=== PATIENT | male | born 1970 | race Caucasian/White ===

== ENCOUNTER 2025-08-07 00:36 | Inpatient (IN) | payer BC, SELFPAY ==
[2025-08-06] VITALS (21 sets, daily range): BP systolic 87–186; BP diastolic 51–122; BMI 25.7
[2025-08-06 21:39] LABS: Hematocrit 46.2 % (39.0-52.0); Hemoglobin 15.9 g/dL (13.0-18.0); Mean Corp Hgb Conc. 34.4 g/dL (33.0-37.0); Mean Corpuscular Volume 93.1 fL (80.0-94.0); Nucleated Red Blood Cells % 0 % (-); Platelet Count 277 10^3/uL (130-400); Red Cell Dist. Width 13.4 % (11.5-14.5)
--- NOTE | 2025-08-06 21:41 | ED.GENMED ---
History of Present Illness
General
Chief Complaint: Chest Pain
Source: patient
Time Seen by Provider: 08/06/25 21:12
History of Present Illness
History of Present Illness:
54-year-old male presents to the emergency room complaining of chest pain. The pain has been present since about noon. Constant pain located in the center of his chest. Pain does not radiate or move from that area. He denies any associated
shortness of breath, diaphoresis or nausea. Nothing seems to make the chest discomfort better or worse. Patient does have a history of coronary artery disease and had a IL in 2019. Patient states he was compliant with medications for a while
after the cath but has not been taking any of his medications for some time. Patient does endorse smoking a pack and a half a day. He drinks about a sixpack of a day as well.
Past History
Past History
ED Past Medical History: HTN and Hypercholesterolemia
ED Past Surgical History: Appendectomy and Other (R scrotal surgery)
Social History
Tobacco: Smoker
Drug: None
Personal:
Living: with family
Employment: Employed
Family History
Family History: Other
Phy Exam
Physical Exam
Physical Exam:
General: Awake, Alert, Oriented X3. No acute distress.
Vitals: unremarkable
Head: Atraumatic
Eyes: Pupils equal, EOMI
Throat: Airway intact, no exudates
Neck: Trachea midline
Lungs: Clear and equal b/l
Heart: Regular rate, no murmurs
Abd: Soft, Nontender, No pulsatile mass
Neuro: Nonfocal
Skin: Warm, dry, no rash
Extremities: pulses equal b/l, no edema
Scores
Heart Score for Chest Pain Patients
STEMI patient?: No
History: Highly Suspicious
ECG: Nonspecific Repolarization
Age: >45 - <65 years
Risk Factors: >/= 3 Risk Factors or History of CAD
Troponin: >/= 3 x Normal Limit
Heart Score for Chest Pain Patients: 8
Heart Score Risk: 72.7 % MACE over next 6 weeks
Course
Orders/Labs/Results
Orders:
Orders
08/06/25 20:51
Electrocardiogram (*1) Urgent
Reason for Study: Chest Pain
EKG- Treatment ONCE
08/06/25 21:32
Alcohol Urgent
Complete Blood Count/With Diff Urgent
Comprehensive Metabolic Panel Urgent
Lipase Urgent
Comment: ADD ON
Troponin I Urgent
08/06/25 21:39
Aspirin Chewable [Low Strength Aspirin] 324 mg PO NOW STA
Famotidine [Pepcid] 20 mg IV NOW STA
CR Chest - 2 Views Urgent
Comment:
Reason For Exam: chest pain
08/06/25 21:40
Add On- LAB Urgent
Tests Added?: lipase, etoh level
08/06/25 22:16
PTT Urgent
08/06/25 22:20
Heparin 4,000 units IV NOW STA
Nitroglycerin 100 mg/250 ml [Nitroglycerin Premix] 100 mg in 250 ml IV NOW
Initial dose in mcg/min, then titrate:: 5
Titrate to keep:: SBP < 160 mmHg
Titrate by mcg/min:: 5 mcg/min, may increase by 10 mcg/min if dose > 20 mcg/min
Frequency of titrations (minutes):: every 3-5 minutes
Maximum dose in mcg/min:: 200
Begin to taper infusion when:: Remained at goal for 2hrs
Taper by mcg/min:: 5 mcg/min
Frequency of taper (minutes) if patient maintains goal:: 30
Taper to off?: Yes
If infusion off & no longer maintaining goal:: Contact Provider
Nitroglycerin Sublingual [Nitrostat (Sublingual)] 0.4 mg SL [id number] PRN
08/06/25 22:22
Nitroglycerin 100 mg/250 ml [Nitroglycerin Premix] 100 mg in 250 ml .ROUTE .STK-MED
Nitroglycerin Sublingual [Nitrostat (Sublingual)] 0.4 mg .ROUTE .STK-MED ONE
Nursing to Place Non Medication Order As Directed
Physician Order: PTT 6 hours after initial start of Heparin infusion
08/06/25 22:30
Heparin 33217 Units/250 ml 25,000 units in 250 ml IV PER PROTOCOL
Weight to be used for heparin protocol in kilograms (kg):: 72.3
Protocol:: Cardiac Tx/Acute Coronary
PTT Goal Range to be used:: PTT 73 to 111 seconds
Order type:: Initial
INITIAL Infusion Dose (UNITS/KG/hr) & then follow protocol:: 15 units/kg/hr
Infusion Dose in UNITS/hr & then follow protocol (UNITS/hr):: 1,100
INFUSION RATE in mL/hr & then follow protocol (mL/hr):: 11
PTT less than or equal to 64 seconds:: Increase rate by 200 units/hr (+ 2 mL/hr)
PTT 64.1 to 72.9 seconds:: Increase rate by 100 units/hr (+ 1 mL/hr)
PTT 73 to 111 seconds:: Target Range. No change in rate.
PTT 111.1 to 130.9 seconds:: Decrease rate by 100 units/hr (- 1 mL/hr)
PTT 131 to 199.9 seconds:: HOLD for 1 hr. Then decrease rate by 200 units/hr (- 2 mL/hr)
PTT greater than or equal to 200 seconds:: HOLD for 2 hrs & Notify Provider. Then decrease by 200 units/hr (-
2 mL/hr)
Lab follow-up:: Each change, PTT q6h until 2 consecutive are therapeutic. Then PTT
daily.
08/06/25 22:33
EKG [Electrocardiogram (*1)] Urgent
Reason for Study: Chest Pain
EKG- Treatment ONCE
Abnormal Lab Results
08/06/25
21:32
WBC 14.8 H 10^3/uL
(4.8-10.8)
MCH 32.1 H pg
(27.0-31.0)
Abs Immat Gran (auto) 0.1 H 10^3/uL
(0-0.05)
Absolute Neuts (auto) 10.2 H 10^3/uL
(1.4-6.5)
Absolute Monos (auto) 1.2 H 10^3/uL
(0.1-0.6)
Lymphocytes % 20.1 L %
(20.5-51.1)
Sodium 133 L mmol/L
(135-145)
Glucose 257 H mg/dl
(70-99)
AST 76 H U/L
(17-59)
Troponin I 9.360 H* ng/ml
08/06/25 21:32
08/06/25 21:32
Vital Signs
Initial and Last Documented VS:
Initial Vital Signs
Temp Pulse Resp BP Pulse Ox
98.0 F 112 20 186/122 98
08/06/25 20:57 08/06/25 20:57 08/06/25 20:57 08/06/25 20:57 08/06/25 20:57
Last Documented Vital Signs
Temp Pulse Resp BP Pulse Ox
98.0 F 63 19 106/67 97
08/06/25 20:57 08/06/25 22:45 08/06/25 22:45 08/06/25 22:45 08/06/25 22:45
MDM/Problems Addressed
Differential Diagnosis Includes:
NSTEMI, GERD, L pancreatitis
MDM/Problems Addressed:
Patient presents with chest pain which he describes as reminiscent of his previous heart attack. Initial EKG showed some T wave inversions in the inferior leads but no ST elevation. Troponin elevated at 9.36. Glucose elevated at 257. Not
surprising given the fact the patient is not taking any of his medications. His chest pain was ultimately relieved with 3 sublingual nitroglycerin as well as the initiation of a nitroglycerin drip. Given the presence of a NSTEMI he was also given
a heparin bolus and started on a heparin drip. Patient also received 324 mg of aspirin here. He will be admitted to the hospitalist service. I discussed the patient's presentation with Dr. Albert love who is on-call for his cardiology group. She
agrees with the plan but would like to be notified if the pain returns through the night.
Chronic conditions affecting care: DM, HTN and CAD
Acute Exacerbation and/or Progression of Chronic Illness: CAD
*Radiology
Radiology exam reviewed: preliminary read by ED provider (No acute abnormality my review of the patient's chest x-ray)
*Pulse Oximetry
SaO2: 97
Oxygen Mode of Delivery: Room air
Patient hypoxic: no
*EKG
Interpreted by ED Provider?: Yes
Heart Rate: 116
Rate: tachycardiac
Rhythm: sinus tachycardia
Interval: normal interval
QRS Pattern: left vent hypertrophy
Ischemia: T-wave inversion (Inferior leads)
*Mold Mover Interpretation
Rate: tachycardiac
Interpretation: abnormal
Heart Rate: 116
Rhythm: sinus and sinus tachycardia
*Critical Care Note
Total Time (30-74mins, 75-104mins- exclusive of procedures): 38 min
comment:
Critical care statement: A total of 38 minutes of critical care time was provided for this patient. This includes management of unstable vital signs, evaluation of the patient at bedside, reviewing the patient's pertinent medical records, discussion
with consultants, review of old EKGs and review of pertinent medical records. This time with separate from time utilized to perform the aforementioned documented procedures
Data Reviewed
Review of Other/Old Records Reveals: Operative Reports (Client Integration Manager report from August 2019) and Testing (Last echo from May 2020)
Patient Management
Social determinants of health affecting care: Substance abuse
Discussion with other providers: Hospitalist and Barley Steeper
ED Attending Note
-
Portions of this chart may have been created with voice recognition software.� Occasional wrong word or��sound alike� substitutions may have occurred due to the inherent limitations of voice recognition software.
Discharge Plan
Departure
Patient Disposition: Admit
Date of Disposition: 08/06/25
Time of Disposition: 23:07
Admit to: IVU
Presentation/result/management discussed w/ accepting MD/DO: Hospitalist
Condition: Serious
Discharge Problem:
Non-ST elevation IL (NSTEMI)
Prescriptions:
No Action
atorvastatin 80 MG tablet
80 mg PO QPM Qty: 90 10RF
spironolactone 12.5 MG tablet
12.5 mg PO DAILY Qty: 90 10RF
aspirin 81 MG tablet,chewable
81 mg PO DAILY 0RF
lisinopril 5 MG tablet
5 mg PO BID Qty: 180 10RF
metoprolol tartrate 25 MG tablet
25 mg PO BID Qty: 180 10RF
nitroglycerin 0.4 MG tablet, sublingual
0.4 mg sublingual [id number] PRN (Reason: chest pain) Qty: 25 10RF
Referrals:
UNKNOWN - PT DOES,NOT KNOW [Family Provider]
Interventions
Interventions:
*Risk Screen - Suicide Last Done: 08/06/25 21:34
*General Assessment Last Done: 08/06/25 20:57
*Neglect/Abuse Screening Last Done: 08/06/25 21:34
*ED- Fall Risk Assessment Last Done: 08/06/25 21:34
*ED COVID-19 Vaccine History Last Done: 08/06/25 21:34
*ED Influenza Vaccine History Last Done: 08/06/25 21:34
ED- Cardiac Assessment Last Done: 08/06/25 21:30
Discharge Date and Time
Print Language: TURKISH
[2025-08-06] MEDS: LOW STRENGTH ASPIRIN 324 MG PO (21:57)
[2025-08-06] MEDS: PEPCID 20 MG IV (21:59)
[2025-08-06 22:02] LABS: ALT (SGPT) 34 U/L (0-50); AST (SGOT) 76 U/L (17-59); Albumin 3.9 g/dl (3.5-5.0); Alkaline Phosphatase 64 U/L (38-126); Blood Urea Nitrogen 20 mg/dl (9-20); Calcium 9.2 mg/dl (8.4-10.2); Carbon Dioxide 27 mmol/L (22-30); Chloride 104 mmol/L (98-107); Estimated Creatinine Clearance 95 ml/min; Glucose 257 mg/dl (70-99); Lipase 78 U/L (23-300); Potassium 4.4 mmol/L (3.5-5.1); Sodium 133 mmol/L (135-145); Total Protein 6.8 g/dl (6.3-8.2); eGFR > 60.00
[2025-08-06 22:14] LABS: Troponin I 9.360 ng/ml
[2025-08-06] MEDS: NITROSTAT (SUBLINGUAL) 0.4 MG SL ×3 (22:27→22:37)
[2025-08-06] MEDS: NITROGLYCERIN PREMIX 250 IV (22:43)
[2025-08-06 22:48] LABS: APTT 26.7 Sec (23.4-35.0)
[2025-08-06] MEDS: HEPARIN 25000 UNITS/250 ML IV (23:06)
[2025-08-06] MEDS: HEPARIN 4000 UNITS IV (23:07)
[2025-08-06] MEDS: NSS 500 IV (23:34)
[2025-08-07] VITALS (40 sets, daily range): BP systolic 103–148; BP diastolic 51–99; BMI 25.5
--- NOTE | 2025-08-07 00:33 | HPS.HSE ---
Family Physician
-
Family Physician: NOT KNOW UNKNOWN - PT DOES
Chief Complaint
-
Chest pain
History of Present Illness
Patient is a 54y M with PMH significant for ASCVD and DM-II who presents to ED complaining of chest pain. Patient states that he developed dull, left-sided chest pain today around noon. His pain gradually increased throughout the day. He notes
associated SOB and mild diaphoresis. No N/V, lightheadedness or dizziness. Patient has prior h/o STEMI in 2019 and notes that his current symptoms were very similar.
When his pain persisted after dinner this evening he presented to the ED for further evaluation.
Patient was treated with SL and IV NTG. He states that his pain was 8/10 at its most severe today. It is currently 0.5 - 1 /10.
Patient states that he has taken no medications for the past 'couple of months'. He states that there was some issues with Rx errors / coverage / etc. He notes however that he also has not been taking his daily ASA 81mg.
Medical History
Past Medical History
Past Medical History: Reports Other
Additional Past Medical History:
ASCVD
Hypertension
DM-II
Ischemic Cardiomyopathy
Past Surgical History: Reports Other
Additional Past Surgical History:
PTCA with LAD Stent (08/17/2019)
Appendectomy
Social History
Tobacco: Smoker (Current every day smoker.)
Alcohol: Occasional
Drug: None
Family History
Family History: Other (Father: CAD Mother: HTN)
Allergies / Home Medications
Allergies reflects when Allergies were last updated in [facility].
Home Medications with original date entered in [facility]
Allergy/Medication List:
Allergies
Allergy/AdvReac Type Severity Reaction Status Date / Time
Penicillins Allergy Unknown Verified 08/06/25 20:57
Home Medications
No Meds [No Current Medications] 08/06/25
Review of Systems
-
History Source: Patient
A 12 point ROS was completed and negative except as noted: Yes
Constitutional: Denies Fever or Chills
EENT: Denies Sore Throat
Respiratory: Reports Trouble Breathing; Denies Cough
Cardiac: Reports Chest Pain and Diaphoresis; Denies Palpitations or Syncope
Abdomen/GI: Denies Abdominal Pain, Nausea, Vomiting or Diarrhea
: Denies Dysuria or Frequency
Musculoskeletal: Denies Joint Pain or Edema
Neurological: Denies Dizzy or Headache
Psych: Denies Depression or Anxiety
Physical Exam
Vital Signs
Vital Signs
Temp Pulse Resp BP Pulse Ox
98.0 F 60 23 117/65 96
08/06/25 20:57 08/07/25 00:05 08/07/25 00:05 08/07/25 00:05 08/07/25 00:05
Physical Exam
General: Other (54y M in no acute distress.)
HEENT: Moist mucous membranes and PERRLA
Respiratory: Clear; No Wheezes, Rales or Rhonchi
Cardiac: S1/S2 and Regular Rhythm; No Murmur
GI: Soft, Non Tender, Non Distended and Normal Bowel Sounds
Musculoskeletal: No Clubbing, No Cyanosis and No Edema
Neuro: AO x 3
Laboratory Results
-
08/06/25 21:32
08/06/25 21:32
Laboratory Results
APTT 26.7 Sec (23.4-35.0) 08/06/25 22:16
Total Bilirubin 0.5 mg/dl (0.2-1.3) 08/06/25 21:32
AST 76 U/L (17-59) H 08/06/25 21:32
ALT 34 U/L (0-50) 08/06/25 21:32
Alkaline Phosphatase 64 U/L (38-126) 08/06/25 21:32
Troponin I 9.360 ng/ml H* 08/06/25 21:32
Lipase 78 U/L (23-300) 08/06/25 21:32
Impression/Plan
-
A/P: Patient is a 54y M with PMH significant for ASCVD, HTN and DM-II who presents to ED complaining of chest pain.
NSTEMI
ASCVD
- Admit to IVU for further evaluation and treatment.
- Initial troponin = 9.36 with 8/10 chest pain and EKG showing hyperacute T waves in V1-3. T wave inversions in inferior leads.
- Chest pain improved with IV NTG.
- Continue IV heparin, IV NTG and monitor for any new / worsening symptoms.
- Follow troponin to peak.
- Resume daily ASA. Add statin.
- Cardiology consulted for additional recommendations and probable ischemic evaluation.
- Encourage medication compliance and smoking cessation.
DM-II
- Glucose elevated at present.
- On no medications and previously described as 'diet-controlled'.
- Follow glucose and cover with SSI as needed.
- Update A1C and begin medication regimen if needed.
Ischemic Cardiomyopathy
- Prior LVEF documented at 30-35%. This recovered to 45-50% post-VT.
DVT Prophylaxis: On IV heparin at present.
Code Status: Full
--- NOTE | 2025-08-07 02:27 | PTCARENOTE ---
Received patient from Darlene in the ED. SR on the monitor, HR in the 60s. Heparin and Nitro running as per protocol, see documentation. Chest pain 2/10, dull, nitro titrated as per protocol. Alert and oriented. Pt reports having six or more alcoholic
beverages in one day 'at least once a week but not everyday.' MSAS protocol initiated, MSAS score 0. DIGITAL MARKETING APPRENTICE Jose Gregory notified. Oriented pt to room and plan of care, pt verbalizes understanding. NPO. Call barton within reach.
[2025-08-07] MEDS: NICODERM TRANSDERMAL 14 MG TRANSDERM ×2 (02:58→07:39)
[2025-08-07 03:00] LABS: Troponin I 20.300 ng/ml
[2025-08-07 05:43] LABS: APTT 38.5 Sec (23.4-35.0)
[2025-08-07 05:52] LABS: Blood Urea Nitrogen 16 mg/dl (9-20); Calcium 8.7 mg/dl (8.4-10.2); Carbon Dioxide 25 mmol/L (22-30); Chloride 106 mmol/L (98-107); Estimated Creatinine Clearance 109 ml/min; Glucose 239 mg/dl (70-99); HDL Cholesterol 49 mg/dl; LDL Cholesterol, Calculated 129 mg/dl; Potassium 4.5 mmol/L (3.5-5.1); Sodium 133 mmol/L (135-145); Very Low Density Lipoprotein 23 mg/dl (0-30); eGFR > 60.00
[2025-08-07 06:12] LABS: Troponin I 20.300 ng/ml
[2025-08-07 07:23] LABS: Glucose - Point of Care 254 mg/dl (70-99)
[2025-08-07] MEDS: LOW STRENGTH ASPIRIN 81 MG PO (07:38)
[2025-08-07] MEDS: NOVOLOG FLEXPEN-LOW RESISTANCE 3 UNITS SC (07:38)
[2025-08-07] MEDS: TYLENOL 650 MG PO (07:38)
--- NOTE | 2025-08-07 08:15 | CON.CAR ---
Consultation
Consultation Request
Date/Time Consultation Requested: 08/07/25 @ 1:31
Date/Time Consultation Performed: 08/07/25 @ 7:55
Requesting Provider: Bernardo Zafar DO
Performing Provider: Maged Padilla MD
Reason for Consultation: chest pain
Medical History
-
Chief Complaint: chest pain
History of Present Illness:
54-year-old man with past medical history of coronary artery disease (anterior OK with LAD PCI in 2019), ischemic cardiomyopathy (EF 45-50%), diabetes, hypertension, active tobacco use, and hyperlipidemia who presents with chest pain. Patient
reports that pain started yesterday around noon. Was not improving so came to the ER last night. Chest pressure is now 1/10. Notably he has been off all of his medications for the past several months because there was an issue with the
prescriptions. He could not afford to take off work to come to the cardiology office so could not get refills. He has also not been taking aspirin 81 mg daily. He is a current smoker. He drinks a sixpack of beer a few times a week. He
previously followed with Dr. Yip for cardiology but has not been seen since 2022.
Past Medical History
Past Medical History: Other (as above)
Social History
Tobacco: Smoker
Alcohol: Other (six pack several times per week)
Drug: Former User
Employment: Employed
Family History
Family History: Reviewed & Not Pertinent
Allergies / Home Medications
Allergy/AdvReac Type Severity Reaction Status Date / Time
Penicillins Allergy Unknown Verified 08/06/25 20:57
�Medication �Instructions �Recorded �Confirmed �Type
No Meds [No Current Medications] 08/06/25 08/06/25 History
Review of Systems
-
All other systems: Negative unless noted
Physical Exam
Vital Signs
Temp Pulse Resp BP Pulse Ox
98.1 F 59 14 117/51 94
08/07/25 07:18 08/07/25 07:18 08/07/25 07:18 08/07/25 07:15 08/07/25 07:19
Lab Results
08/06/25 21:32
08/07/25 05:14
Troponin I 20.300 ng/ml H* 08/07/25 05:14
Physical Exam
General: Well Developed and Well Nourished
Respiratory: Wheezes and Non Labored Respirations
Cardiac: S1/S2; Negative Murmur or Peripheral Edema
Neuro: AO x 3
Impression / Plan
-
54-year-old man with past medical history of coronary artery disease (anterior OK with LAD PCI in 2019), ischemic cardiomyopathy (EF 45-50%), diabetes, hypertension, active tobacco use, and hyperlipidemia who presents with chest pain.
Cardiology: Phi (will be Randy)
NSTEMI
-Diagnosis is a threat to life. He has ongoing 1/10 chest pressure.
-Troponin 9.3 -> 20.3 -> 20.3. ECG with dynamic changes but no STEMI.
-He is s/p aspirin 325 mg. Continue heparin drip and nitroglycerin infusion which require intensive monitoring
-Given ongoing chest pain, he will need to go to [facility] urgently. Message sent to chemical lab technician chargeback analyst and invasive cardio
Coronary artery disease
-[facility] 2019: Approximately occluded LAD s/p PCI, 30% proximal LCx, mid RCA 40% and 60% tandem lesions
-As above, he has not been compliant with any of his medications. He is still smoking.
-Resume aspirin 81 and atorvastatin 80 mg daily. LDL 129.
Ischemic cardiomyopathy
-TTE 2020: LVEF 45-50%, mid LAD wall motion abnormality, no VHD
-Add GDMT this admission. Will need to be considerate of cost.
Hypertension: Trend with addition of GDMT as above
DM: Per primary team
Data Reviewed
-
EKG: Tracing Personally Visualized and interpreted (NSR, inferolateral TWI and ST depressions)
Medical Tests (Nuc Med, Echo etc): Report Reviewed by me
Labs: Labs Reviewed by me, Discussed with Physician and Discussed with Patient
[2025-08-07 08:51] LABS: Glycohemoglobin (HgbA1c) 9.3 % (4.0-5.9)
--- NOTE | 2025-08-07 09:15 | PTCARENOTE ---
Patient received at change of shift asleep in the bed. Nitro gtt and heparin gtt infusing as ordered. The patient reports intermittent chest pressure, rated as a 1 out of 10, nitro gtt titrated up. Acetaminophen administered for headache, see NOV.
Discussed NPO status for tentative cardiac cath today, patient verbalized understanding. SR on telemetry. Oxygen saturation 94% on RA. Call barton within reach. Bed in lowest position, wheels locked. Care ongoing.
[2025-08-07] MEDS: NOVOLOG FLEXPEN-LOW RESISTANCE 2 UNITS SC (11:29)
[2025-08-07 11:30] LABS: Glucose - Point of Care 206 mg/dl (70-99)
--- NOTE | 2025-08-07 11:35 | PTCARENOTE ---
Patient remains CP free, nitroglycerin gtt currently infusing at 40mcg/min. Discussed with patient to alert staff if chest pain returns. Care ongoing.
--- NOTE | 2025-08-07 11:52 | CM ---
Reviewed chart. Met with Mr. Lozada to review discharge plans. He states prior to admission he resides with his mother in a two story home with one step to enter. He states he has a full flight of steps to get to bedroom/full bathroom. He states
he has a powder room on the first floor. He states prior to admission he was independent with ambulation and adls. He states he does not have any DME in the home.He states he has a prescription plan and uses [facility]. We reviewed [employer] for
decreasing and /or stopping his alcohol consumption. He states his is more interested in trying to stop smoking. He did take the [employer] information. Medical work-up in progress. The discharge plan is to return home with his mother when
medically stable.
[2025-08-07 12:50] LABS: APTT 42.2 Sec (23.4-35.0)
[2025-08-07 13:12] LABS: Troponin I 18.500 ng/ml
--- NOTE | 2025-08-07 13:28 | W.PN.UPDATE ---
Update Note
Progress Note Update
nstemi
hep gtt
asa statin
bb
for ischemic eval with [facility]
hfrecef, ischemic cm
cards to begin gdmt on this admit
dmii
accucechk
ssi
ccdiet
bg 140-180
[2025-08-07 13:55] LABS: ACT-LR - POC 211 Seconds (116-155)
[2025-08-07 14:21] LABS: ACT-LR - POC 255 Seconds (116-155)
--- NOTE | 2025-08-07 14:41 | PTCARENOTE ---
Patient returned from [facility] with right radial TR band intact, pox on right hand 97%, radial pulse palpable. The patient reported 3 out of 10 chest pain, nitroglycerin gtt infusing at 40mcg/min. The patient then reported the chest pain was down to a 2,
nitroglycerin gtt titrated up to 45mcg/min. Patient's mother at bedside. Discussed activity restrictions with patient who verbalized understanding. Call barton within reach. Dr. Yoon at bedside to speak with patient and mother. Care ongoing.
--- NOTE | 2025-08-07 15:40 | PTCARENOTE ---
Patient returning to cathead operator per Dr. Yoon. Transported in bed by CCL RNs.
--- NOTE | 2025-08-07 16:47 | CM ---
priced ticagrelor with pts [facility]= his copay is $15/mo- it is in stock
[2025-08-07 16:48] LABS: ACT-LR - POC 269 Seconds (116-155)
[2025-08-07 16:52] LABS: ACT-LR - POC 316 Seconds (116-155)
[2025-08-07 17:16] LABS: ACT-LR - POC 245 Seconds (116-155)
[2025-08-07 17:29] LABS: Glucose - Point of Care 181 mg/dl (70-99)
[2025-08-07] MEDS: NOVOLOG FLEXPEN-LOW RESISTANCE 1 UNITS SC (17:29)
[2025-08-07] MEDS: LIPITOR 80 MG PO (17:30)
--- NOTE | 2025-08-07 18:00 | PTCARENOTE ---
Patient received from [facility] after second cath procedure today. New left radial TR band intact, pox 98%, radial pulse palpable. Right radial TR band from first cath intact, pox 99%, radial pulse palpable. Per laboratory engineer do not start taking air out of the
first band due to heparin given during the case. Follow new TR band order to start taking air out 2 hours post placement of the left TR band which was placed at 1702 so air may be taken out of both bands starting at 1902. Post cath ECG completed.
The patient denies chest pain. Both heparin and nitro gtts were off upon arrival to the unit. Activity restrictions reviewed with the patient who verbalized understanding. Call barton within reach. Care ongoing.
--- NOTE | 2025-08-07 22:56 | ITS.CL.CATH ---
Assistant Counsel - Catheterization
Cardiac Catheterization
Procedure Report:
LEFT HEART CATHETERIZATION
Date of Procedure: August 07, 2025
Referring: Maged Lemus
PROCEDURES:
1. Left heart catheterization, coronary angiogram.
2. Moderate sedation.
3. IVUS of ostial Left Main (LM)
4. Functional physiologic testing of ostial LM and LaD
5. Functional physiologic testing of Ramus Intermedium
6. Functional physiologic testing of LCx.
INDICATION: NSTEMI, mild cardiomyopathy.
ACCESS: Right radial artery, 6Fr. sheath, under US guidance.
HEMODYNAMICS : (mmHg)
AO (s/d) : 113/67
LVEDP : 30
No significant gradient across the aortic valve to suggest aortic stenosis.
CORONARY FINDINGS: calcified, severely tortuous arteries.
Dominance: Right
Left Main Trunk (LMT): �Large caliber vessel that gives rise to the LAD and LCx branches. There is ostial 30% stenosis. Although there was occasional ventricularization without pressure dampening on engagement, on [place] [employer] IVUS, the MLA was
10 mm2.�
Left Anterior Descending Artery (LAD): �Large caliber vessel that gives off several small diagonals and a medium caliber major diagonal as it courses along the anterior inter-ventricular groove before wrapping around the cardiac apex. The LAD has
diffuse mild disease with mid vessel 40% stenosis. The LAD is not physiologically significant (iFR 0.93).�
Left Circumflex Artery (LCx): �Large caliber vessel that gives off a medium caliber high rising first major obtuse marginal (OM), a large bifurcating OM2, and to small left posterolateral branches. �The OM1 has ostial and mid 80% stenosis that is
not physiologically significant (iFR 0.93). The mid LCx has a hazy 80% stenosis that although is not significant by iFR is hazy and is the likely culprit for the NSTEMI consistent with acute plaque rupture. The OM2 has proximal 50% stenosis.�
Right Coronary Artery (RCA): �Large caliber dominant vessel that has a 80% mid-vessel stenosis and then is chronic totally occluded in the mid-vessel with left to right collaterals.
[place] [facility] IVUS: Using the 6 Fr EBU 3.5 guide catheter, IVUS was performed over left main which showed calcified and non-calcified plaque but MLA > 6mm2 (10mm2).
HEMODYNAMIC ASSESSMENT OF THE ostial LM into LAD WITH A [place] OMNI WIRE: The origin of the left coronary artery was cannulated with a 6 Fr EBU 3.5 guide catheter. Intravenous heparin was administered and the ACT was followed during the procedure.
Two hundred micrograms of intracoronary nitroglycerin was given through the guide catheter. A [place] Omni wire was advanced to the guide catheter tip and normalized just outside the guide catheter. The Omni wire was then carefully manipulated
across the stenosis in the ostial left main and LAD with the iFR above the ischemic threshold measuring 0.93. The Omni wire was then pulled back to the guide catheter where the Pd/Pa measured 1.0 confirming no baseline drift in pressure readings.
The Omni wire was then carefully manipulated across the stenosis in the osital and mid OM1 with the iFR above the ischemic threshold measuring 0.93. The Omni wire was then pulled back to the guide catheter where the Pd/Pa measured 1.0 confirming no
baseline drift in pressure readings. The Omni wire was then carefully manipulated across the stenosis in the mid LCX with the iFR above the ischemic threshold measuring 0.95. The Omni wire was then pulled back to the guide catheter where the Pd/Pa
measured 1.0 confirming no baseline drift in pressure readings.
SEDATION: 37 minutes of procedural sedation was utilized. IV Midazolam and IV Fentanyl were administered. An independent medical records director was present to assist with and help manage the patient's level of consciousness and physiologic status.
RADIATION SUMMARY: Fluoro Time (min): 10.4, Dose (mGy): 589, DAP (Gy.cm2) : 38
Closure Device: There were no immediate intra-procedural complications. The sheath was pulled in the laborer orchard and a vascular-band applied to the right wrist for radial artery hemostasis using the patent hemostasis technique.
CONCLUSIONS
1. There is ostial 30% stenosis. Although there was occasional ventricularization without pressure dampening on engagement, on [place] [facility] IVUS, the MLA was 10 mm2.�
2. The LAD has diffuse mild disease with mid vessel 40% stenosis. The LAD is not physiologically significant (iFR 0.93).�
3. The OM1 has ostial and mid 80% stenosis that is not physiologically significant (iFR 0.93). The mid LCx has a hazy 80% stenosis that although is not significant by iFR is hazy and is the likely culprit for the NSTEMI consistent with acute plaque
rupture. The OM2 has proximal 50% stenosis.�
4. Large caliber dominant vessel that has a 80% mid-vessel stenosis and then is chronic totally occluded in the mid-vessel with left to right collaterals.
5. Elevated LVEDP 30mmHg.
RECOMMENDATIONS
1. Wean radial band per protocol. Monitor right hand perfusion and for bleeding from the radial site following removal of the vascular-band following trans-radial access.
2. Continue aggressive medical therapy and risk factor modification for secondary CAD prevention.
3. Hydrate with normal saline to mitigate the risk of contrast-induced acute kidney injury.
4. Given the hazy nature of the vessel despite negative ifr this was considered to be unstable plaque and thus he was brought back to heat laborer orchard after extensive discussion with him and his mother at bedside for for pci
Clarice Yoon MD, FACC, [facility]
[2025-08-07 23:30] LABS: Glucose - Point of Care 256 mg/dl (70-99)
--- NOTE | 2025-08-07 23:48 | ITS.CL.CATH ---
Associate Dean - Catheterization
Cardiac Catheterization
Procedure Report:
CORONARY INTERVENTION
Date of Procedure: August 07, 2025
Referring: Maged Padilla
PROCEDURES:
1. Selective coronary angiogram.
2. Moderate sedation.
3. Successful IVUS guided percutaneous coronary artery intervention with one 2.5x23mm XIENCE skypoint MARKO, post dilated with 2.5mm NC balloon at high pressure distally and 3.5mmNC at high pressures proximally based on IVUS guidance.
4. Intravascular ultrasound (IVUS)
INDICATION: The OM1 has ostial and mid 80% stenosis that is not physiologically significant (iFR 0.93). The mid LCx has a hazy 80% stenosis that although is not significant by iFR is hazy and is the likely culprit for the NSTEMI consistent with
acute plaque rupture. The OM2 has proximal 50% stenosis.�Given the hazy nature of the vessel despite negative ifr this was considered to be unstable plaque and thus he was brought back to heat tailings dam laborer after extensive discussion with him and his
mother at bedside for for PCI.
ACCESS: Left radial artery, 6Fr. sheath, under US guidance.
HEMODYNAMICS : (mmHg)
AO (s/d) : 112/60
CORONARY FINDINGS:
Left Circumflex Artery (LCx): �Large caliber vessel that gives off a medium caliber high rising first major obtuse marginal (OM), a large bifurcating OM2, and to small left posterolateral branches. �The OM1 has ostial and mid 80% stenosis that is
not physiologically significant (iFR 0.93). The mid LCx has a hazy 80% stenosis that although is not significant by iFR is hazy and is the likely culprit for the NSTEMI consistent with acute plaque rupture. The OM2 has proximal 50% stenosis.�
CORONARY ANATOMY: The LCA was selectively engaged using 6 K[place] EBU 3.5 guide catheter. Additional heparin was given to maintain a therapeutic ACT throughout the case. A 190 cm 0.014 run-through wire was successfully advanced into the distal
vessel. The prox LCX lesion was predilated using a 2.5 x 12 mm semicompliant balloon. IVUS was performed and based on IVUS guidace, we stented using a 2.5 x 23 mm XIENCE SKYPOINT drug-eluting stent and postdilated using a 2.5 mm NC balloon at high
pressuresdsitlaly and 3.5mm NC balloon at high pressure proximally based on IVUS guidance with an excellent angiographic result. Patient was loaded with 180 mg of Plavix at end of case. He tolerated the procedure well with no acute complications.
SEDATION: 37 minutes of procedural sedation was utilized. IV Midazolam and IV Fentanyl were administered. An independent medical historian was present to assist with and help manage the patient's level of consciousness and physiologic status.
RADIATION SUMMARY: Fluoro Time (min): 7.6, Dose (mGy): 217, DAP (Gy.cm2) : 11.7
Closure Device: There were no immediate intra-procedural complications. The sheath was pulled in the tailings dam laborer and a vascular-band applied to the left wrist for radial artery hemostasis using the patent hemostasis technique.
CONCLUSIONS
1. Successful IVUS guided percutaneous coronary artery intervention with one 2.5x23mm XIENCE skypoint MARKO, post dilated with 2.5mm NC balloon at high pressure distally and 3.5mmNC at high pressures proximally based on IVUS guidance.
RECOMMENDATIONS
1. Wean radial band per protocol. Monitor right hand perfusion and for bleeding from the radial site following removal of the vascular-band following trans-radial access.
2. Continue aggressive medical therapy and risk factor modification for secondary CAD prevention.
3. Continue ASA 81 mg daily for life.
4. Continue ticagrelor for at least 12 months of uninterrupted dual anti-platelet therapy given drug-eluting stent (MARKO) implantation to mitigate the risk of stent thrombosis. This is not to be stopped for any reason without the guidance of a
cath lab tech.
5. Hydrate with normal saline to mitigate the risk of contrast-induced acute kidney injury.
6. Referral for outpatient cardiac rehab.
7. Follow-up with outpatient cardiology.
Clarice Yoon MD, FACC, [facility]
--- NOTE | 2025-08-08 02:48 | PTCARENOTE ---
Pt NSR on monitor, VSS. B/L TR bands removed per protocol, Dsg CDI, positive pulses. Pt denies chest pain. Pt independent in the room. Call barton within reach
[2025-08-08 04:01] VITALS: BP 131/74
[2025-08-08 04:55] LABS: Blood Urea Nitrogen 10 mg/dl (9-20); Calcium 8.6 mg/dl (8.4-10.2); Carbon Dioxide 27 mmol/L (22-30); Chloride 106 mmol/L (98-107); Estimated Creatinine Clearance 109 ml/min; Glucose 203 mg/dl (70-99); Potassium 4.3 mmol/L (3.5-5.1); Sodium 135 mmol/L (135-145); eGFR > 60.00
[2025-08-08 06:00] VITALS: BMI 24.5
[2025-08-08 07:19] VITALS: BP 132/71
[2025-08-08 07:54] LABS: Glucose - Point of Care 200 mg/dl (70-99)
--- NOTE | 2025-08-08 08:13 | W.PN.CD ---
Today's Communication / Plan
-
Resume home lisinopril previously taking 20 mg
Cont atorva 80
DAPT 1 year
Adamant about leaving
Impression / Plan
-
54-year-old man with past medical history of coronary artery disease (anterior [place] with LAD PCI in 2019), ischemic cardiomyopathy (EF 45-50%), diabetes, hypertension, active tobacco use, and hyperlipidemia who presents with chest pain.
Cardiology: Phi (will be Randy)
NSTEMI s/p Circ stent
-Troponin 9.3 -> 20.3 -> 20.3. ECG with dynamic changes but no STEMI.
-now on DAPT asa and ticag cont for 12 months
- resume statin
- cessation of smoking discussed
- resume home lisinopril
Coronary artery disease
-[facility] 2019: Approximately occluded LAD s/p PCI, 30% proximal LCx, mid RCA 40% and 60% tandem lesions
-As above, he has not been compliant with any of his medications. He is still smoking.
-Resume aspirin 81 and atorvastatin 80 mg daily. LDL 129.
Ischemic cardiomyopathy
-TTE 2020: LVEF 45-50%, mid LAD wall motion abnormality, no VHD
-Add GDMT this admission. Will need to be considerate of cost.
Hypertension: Trend with addition of GDMT as above
DM: Per primary team
Subjective: feels great wants to leave
Physical Exam
Vital Signs/Labs
Vital Signs
Temp Pulse Resp BP Pulse Ox
98.7 F 87 18 132/71 98
08/08/25 07:15 08/08/25 07:19 08/08/25 07:15 08/08/25 07:19 08/08/25 07:15
08/07/25 08/08/25 08/09/25
06:59 06:59 06:59
Actual Weight 157 lb 13.616 oz 151 lb 7.321 oz
08/06/25 21:32
08/08/25 04:10
APTT 42.2 Sec (23.4-35.0) H 08/07/25 12:24
Triglycerides 119 mg/dl (10-149) 08/07/25 05:14
LDL Cholesterol, Calc 129 mg/dl 08/07/25 05:14
VLDL Cholesterol, Calc 23 mg/dl (0-30) 08/07/25 05:14
HDL Cholesterol 49 mg/dl 08/07/25 05:14
LAB Results
08/06/25 08/07/25 08/07/25
21:32 02:02 05:14
Troponin I 9.360 H* 20.300 H* D 20.300 H*
08/07/25
12:24
Troponin I 18.500 H*
Physical Exam
Constitutional: No acute distress and Comfortable
EENT: Anicteric
Cardiovascular: Rhythm & rate is regular
Respiratory: Respiratory effort normal and Lungs clear to auscul.
GI: Soft
Neuro/Psych: Alert and AO x 3
Other: Cath Site (c/d/i)
Data Reviewed
-
Date of Service: August 08, 2025
Medical Decision Making: Reviewed Test Results
EKG: Tracing Personally Visualized and interpreted (sr)
Labs: Labs Reviewed by me
[2025-08-08] MEDS: BRILINTA 90 MG PO ×2 (08:14→19:54)
[2025-08-08] MEDS: LOW STRENGTH ASPIRIN 81 MG PO (08:14)
[2025-08-08] MEDS: NOVOLOG FLEXPEN-LOW RESISTANCE 2 UNITS SC (08:15)
[2025-08-08] MEDS: NICODERM TRANSDERMAL 14 MG TRANSDERM (08:15)
[2025-08-08 11:37] VITALS: BP 128/78
[2025-08-08 12:08] LABS: Glucose - Point of Care 265 mg/dl (70-99)
--- NOTE | 2025-08-08 12:32 | W.PN.HOSP.TC ---
Today's Communication/Plan
-
Assessment / Plan
Assessment / Plan
NAD
Scleral Anicteric
MMM
No JVD
CTABL
RRR, S1/S2
Soft, NT, ND, BS+
Warm, Dry
AAOx3
Calm
CAD with 80% lesion of lcx, s/p MARKO
asa for life
birlinta for at least 12months
statin
bb
outpatient cardiology follow up
outpatient cardiac rehab
hfrecef, ischemic cm
cards to begin gdmt on this admit
per cards if unable to complete 2d echo as inpatient then would be able to do as an outpatient, this was relied via TT
dmii
a1c 9.3
accucechk
ssi
ccdiet
bg 140-180
diabetes education
metformin 500mg BID to start
hyponatremia
resolved
Anticipated Discharge: 24 - 48 hours
Subjective/Interval History
-
Date of Service: August 08, 2025
seen and examined. no new complaints. no acute overnight events
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
-I informed him when he does go back to work he has to take it east will need to be on extreme light duty
--he verbalized understanding
if he is not bale to dc tomorrow then he will leave ama
Objective Data
-
Labs:
Laboratory Results
08/08/25
04:10
Sodium 135
Potassium 4.3
Chloride 106
Carbon Dioxide 27
BUN 10
Creatinine 0.7
Glucose 203 H
Calcium 8.6
Vital Signs:
Vital Signs
Temp Pulse Resp BP Pulse Ox
99.3 F 87 18 132/71 98
08/08/25 11:36 08/08/25 07:19 08/08/25 11:36 08/08/25 07:19 08/08/25 11:36
I&O
08/07/25 08/08/25 08/09/25
06:59 06:59 06:59
Intake Total 240 / 240
Output Total 500 / 500 1450 / 1450
Balance -500 / -500 -1210 / -1210
[2025-08-08] MEDS: NOVOLOG FLEXPEN-LOW RESISTANCE 3 UNITS SC (13:03)
[2025-08-08] MEDS: ZESTRIL 20 MG PO (13:03)
[2025-08-08 15:08] VITALS: BP 125/87
--- NOTE | 2025-08-08 15:55 | PTCARENOTE ---
Assumed care of the pt @ 0700. Pt is AAOx3 SR on the monitor VSS denies cp. b/l radial cath site dressing c/d/i. Pt refused IV Lasix. Pt requesting to shower, Dr Richards and Thiago aware. IV and cath sites covered prior to shower and instructions
given to avoid a hot shower. Pt placed back on trackman. Pt ambulating in room and hallway breanne well.
[2025-08-08 17:25] LABS: Glucose - Point of Care 181 mg/dl (70-99)
[2025-08-08] MEDS: NOVOLOG FLEXPEN-LOW RESISTANCE 300 UNITS SC (17:26)
[2025-08-08] MEDS: CRESTOR 20 MG PO (19:54)
[2025-08-08 19:57] VITALS: BP 126/77
--- NOTE | 2025-08-08 21:43 | PTCARENOTE ---
assumed care of patient at the change of shift. AAOx3. ambulating in the halls. denies any cp/sob. educated patient to inform RN with any changes overnight. SR on tele 70s-80s. bp stable. b/l wrist cath sites intact; +pulses. patient is eager to go
home tomorrow. reviewed new medications and importance. med list provided. patient states wanting to get his blood sugars under control. states wanting to speak with doctor on medication options. 'metformin gave me diarrhea.' patient appears to be
willing to improve health. answered all questions. call barton within reach.
[2025-08-08 22:16] LABS: Glucose - Point of Care 289 mg/dl (70-99)
[2025-08-08 23:59] VITALS: BP 122/74
[2025-08-09 04:37] VITALS: BP 116/64
[2025-08-09 04:53] LABS: Hematocrit 46.6 % (39.0-52.0); Hemoglobin 15.9 g/dL (13.0-18.0); Mean Corp Hgb Conc. 34.1 g/dL (33.0-37.0); Mean Corpuscular Volume 96.9 fL (80.0-94.0); Platelet Count 245 10^3/uL (130-400); Red Cell Dist. Width 13.2 % (11.5-14.5)
[2025-08-09 05:31] LABS: Blood Urea Nitrogen 12 mg/dl (9-20); Calcium 9.0 mg/dl (8.4-10.2); Carbon Dioxide 29 mmol/L (22-30); Chloride 105 mmol/L (98-107); Estimated Creatinine Clearance 95 ml/min; Glucose 220 mg/dl (70-99); Potassium 5.3 mmol/L (3.5-5.1); Sodium 136 mmol/L (135-145); eGFR > 60.00
[2025-08-09 07:19] VITALS: BP 124/73
[2025-08-09 08:22] LABS: Glucose - Point of Care 240 mg/dl (70-99)
[2025-08-09] MEDS: NOVOLOG FLEXPEN-LOW RESISTANCE 2 UNITS SC (08:39)
[2025-08-09] MEDS: NICODERM TRANSDERMAL 14 MG TRANSDERM (08:41)
[2025-08-09] MEDS: ZESTRIL 20 MG PO (08:42)
[2025-08-09] MEDS: BRILINTA 90 MG PO (08:42)
[2025-08-09] MEDS: LOW STRENGTH ASPIRIN 81 MG PO (08:42)
[2025-08-09] MEDS: FLUZONE (6 mos+) 2025-2026 FORMULA 0.5 ML IM (09:52)
[2025-08-09] MEDS: LOKELMA 10 GRAM PO (09:58)
--- NOTE | 2025-08-09 10:53 | PTCARENOTE ---
Pt received this am oob ambulating in the hallway. Pt denies any chest pain or sob. Bilateral radial cath sites WNL and open to air. SR, rate in the 80's to 90's. Room air sat 98%. Pt refused am IV lasix.
[2025-08-09 11:03] VITALS: BP 118/73
[2025-08-09 11:39] LABS: Glucose - Point of Care 293 mg/dl (70-99)
[2025-08-09] MEDS: NOVOLOG FLEXPEN-LOW RESISTANCE 3 UNITS SC (11:40)
--- NOTE | 2025-08-09 11:43 | W.DCSUMMARY ---
Discharge Summary
Discharge Data
Date of Admission: 08/07/25
Date of Discharge: 08/09/25
-
Pending Results: No
Hospital Course
54y M with PMH significant for ASCVD and DM-II
Presented with chest pain that was similar to [place] event in 2019. Found to have elevated troponin that peaked in the 20's along with ekg that had hyperacute t wave changes. Started on heparin drip and cardiology was consulted with recommendation of
LHC on 08/07. LHC demonstrated 80% LCx lesion that was stented. It has been recommended to continue aspirin life long, brilinta for at least 12 months. Started on coreg and crestor along with as needed nitroglycerin. Will need to follow up with
cardiology as an outpatient along with completion of a 2d echocardiogram with cardiology as an outpatient.
Additionally, should be noted found to have new onset diabetes. Started on metformin 500mg BID. Glucometer/lancet and test strips provided. Follow a diabetic/heart healthy diet.
Will need to see cardiology and PCP as an outpatient
Will also need to endocrinology, podiatry, nephrology and ophthalmology for diabetes care.
Stop smoking/use of tobacco/nicotine products
[facility]
CONCLUSIONS
1. Successful IVUS guided percutaneous coronary artery intervention with one 2.5x23mm XIENCE skypoint MARKO, post dilated with 2.5mm NC balloon at high pressure distally and 3.5mmNC at high pressures proximally based on IVUS guidance.
RECOMMENDATIONS
1. Wean radial band per protocol. Monitor right hand perfusion and for bleeding from the radial site following removal of the vascular-band following trans-radial access.
2. Continue aggressive medical therapy and risk factor modification for secondary CAD prevention.
3. Continue ASA 81 mg daily for life.
4. Continue ticagrelor for at least 12 months of uninterrupted dual anti-platelet therapy given drug-eluting stent (MARKO) implantation to mitigate the risk of stent thrombosis. This is not to be stopped for any reason without the guidance of a
auto rebuilder.
5. Hydrate with normal saline to mitigate the risk of contrast-induced acute kidney injury.
6. Referral for outpatient cardiac rehab.
7. Follow-up with outpatient cardiology.
Seen and examined on the day of discharge which was 08/09/2025. No new complaitns. no acute ovenright events
cleared by cardioogy for dc home
NAD
Scleral Anicteric
MMM
No JVD
CTABL
RRR, S1/S2
Soft, NT, ND, BS+
Warm, Dry
AAOx3
Calm
More than 30 minutes spent in discharge including
Final examination of the patient
Summarizing hospital stay
Instructions for continuing care to all relevant caregivers
Preparation of discharge records, prescriptions, and referral forms
Total time spent (in minutes): 33
Discharge Plan
-
Patient Disposition: Home (Routine Discharge)
Discharge Diagnosis/Procedures: NSTEMI, Angioplasty with stent to Left Circumflex artery
Condition: Good
Diet: Low Cholesterol, 2 Gram Sodium, Diabetic, Carb Controlled and No added salt
Activity: As tolerated
Driving Restrictions: No driving for 24 hours
Blood Work: repeat bmp in 3-5days with PCP
Other Services: Cardiac Rehab
Activity Restrictions/Additional Instructions:
Presented with chest pain that was similar to [place] event in 2019. Found to have elevated troponin that peaked in the 20's along with ekg that had hyperacute t wave changes. Started on heparin drip and cardiology was consulted with recommendation of
LHC on 08/07. LHC demonstrated 80% LCx lesion that was stented. It has been recommended to continue aspirin life long, brilinta for at least 12 months. Started on coreg and crestor along with as needed nitroglycerin. Will need to follow up with
cardiology as an outpatient along with completion of a 2d echocardiogram with cardiology as an outpatient.
Additionally, should be noted found to have new onset diabetes. Started on metformin 500mg BID. Glucometer/lancet and test strips provided. Follow a diabetic/heart healthy diet.
Will need to see cardiology and PCP as an outpatient
Will also need to endocrinology, podiatry, nephrology and ophthalmology for diabetes care.
Stop smoking/use of tobacco/nicotine products
LHC
CONCLUSIONS
1. Successful IVUS guided percutaneous coronary artery intervention with one 2.5x23mm XIENCE skypoint MARKO, post dilated with 2.5mm NC balloon at high pressure distally and 3.5mmNC at high pressures proximally based on IVUS guidance.
RECOMMENDATIONS
1. Wean radial band per protocol. Monitor right hand perfusion and for bleeding from the radial site following removal of the vascular-band following trans-radial access.
2. Continue aggressive medical therapy and risk factor modification for secondary CAD prevention.
3. Continue ASA 81 mg daily for life.
4. Continue ticagrelor for at least 12 months of uninterrupted dual anti-platelet therapy given drug-eluting stent (MARKO) implantation to mitigate the risk of stent thrombosis. This is not to be stopped for any reason without the guidance of a
auto rebuilder.
5. Hydrate with normal saline to mitigate the risk of contrast-induced acute kidney injury.
6. Referral for outpatient cardiac rehab.
7. Follow-up with outpatient cardiology.
Stand Alone Forms: DC Instructions- Cath/EP Lab, Return to Work
Referrals:
Enrique Krueger, DO [Active, Cardiology] - 08/21/25 10:00 am
UNKNOWN - PT DOES,NOT KNOW [Family Provider, Family Practice] - in one week
Prescriptions:
New
ticagrelor [Brilinta] 90 mg tablet
90 mg PO BID Qty: 60 5RF
nicotine 14 mg/24 hr Patch 24 Hour
14 mg transdermal DAILY Qty: 14 0RF
nitroglycerin 0.4 mg Tablet, Sublingual
0.4 mg sublingual [id number] PRN (Reason: ANGINA) Qty: 90 0RF
aspirin 81 mg Tablet,Chewable
81 mg PO DAILY Qty: 30 0RF
rosuvastatin 20 mg Tablet
20 mg PO Q24H Qty: 30 0RF
carvedilol [Coreg] 6.25 mg tablet
6.25 mg PO BID Qty: 60 0RF
metformin 500 mg tablet
500 mg PO BID Qty: 60 0RF
(DME) blood-glucose meter [Contour Next One Meter] Misc
Qty: 1 0RF
Rx Instructions:
As Directed
(DME) Contour Next Test Strips Strip
Qty: 200 0RF
Rx Instructions:
As Directed
(DME) lancets [Accu-Chek Softclix Lancets] Misc
Qty: 200 0RF
Rx Instructions:
As Directed
Discharge Orders:
Discharge Patient (As Directed); Ordered 08/09/25
Ordered By: Jay Richards
Care Plan Goals
Care Plan Goals:
Problem: Readiness for enhanced knowledge related to diagnosis and treatment plan
Goal: Understand your diagnosis and treatment plan needs, including medications if applicable.
Instructions: Know your diagnosis, underlying causes and treatment plan options, including medications if applicable. Consult with your health care team to learn about your diagnosis and treatment plan, including medications if applicable.
Discharge Date and Time
Print Language: MOHAWK
--- NOTE | 2025-08-09 11:50 | PTCARENOTE ---
Pt discharged to home with his mother. Discharge instructions given and reviewed with good understanding and all questions answered. Bilateral radial sites remain WNL.
--- NOTE | 2025-08-09 13:13 | W.PN.CD ---
Today's Communication / Plan
-
Patient would like to leave
- Stop lisinopril start Coreg
Will schedule follow-up
Impression / Plan
-
54-year-old man with past medical history of coronary artery disease (anterior DC with LAD PCI in 2019), ischemic cardiomyopathy (EF 45-50%), diabetes, hypertension, active tobacco use, and hyperlipidemia who presents with chest pain.
Cardiology: [facility]i (will be Randy)
NSTEMI s/p Circ stent
-Troponin 9.3 -> 20.3 -> 20.3. ECG with dynamic changes but no STEMI.
-now on DAPT asa and ticag cont for 12 months
- resume statin
- cessation of smoking discussed
- Slight hyperkalemia we will stop lisinopril start Coreg 6.25 twice daily
Coronary artery disease
-[facility] 2019: Approximately occluded LAD s/p PCI, 30% proximal LCx, mid RCA 40% and 60% tandem lesions
-As above, he has not been compliant with any of his medications. He is still smoking.
-Resume aspirin 81 and switch atorvastatin to rosuvastatin
Ischemic cardiomyopathy
-TTE 2020: LVEF 45-50%, mid LAD wall motion abnormality, no VHD
-Add GDMT this admission. Will need to be considerate of cost.
- Update echo as outpatient
Hypertension: Trend with addition of GDMT as above
DM: Per primary team
Subjective: feels great wants to leave
Physical Exam
Vital Signs/Labs
Vital Signs
Temp Pulse Resp BP Pulse Ox
97.8 F 96 15 118/73 97
08/09/25 11:03 08/09/25 11:30 08/09/25 11:03 08/09/25 11:03 08/09/25 11:03
08/08/25 08/09/25 08/10/25
06:59 06:59 06:59
Actual Weight 151 lb 7.321 oz
08/09/25 04:37
08/09/25 04:37
APTT 42.2 Sec (23.4-35.0) H 08/07/25 12:24
Triglycerides 119 mg/dl (10-149) 08/07/25 05:14
LDL Cholesterol, Calc 129 mg/dl 08/07/25 05:14
VLDL Cholesterol, Calc 23 mg/dl (0-30) 08/07/25 05:14
HDL Cholesterol 49 mg/dl 08/07/25 05:14
LAB Results
08/06/25 08/07/25 08/07/25
21:32 02:02 05:14
Troponin I 9.360 H* 20.300 H* D 20.300 H*
08/07/25
12:24
Troponin I 18.500 H*
Physical Exam
Constitutional: No acute distress and Comfortable
EENT: Anicteric
Cardiovascular: Rhythm & rate is regular and Pedal edema is absent
Respiratory: Respiratory effort normal and Lungs clear to auscul.
GI: Soft
Neuro/Psych: AO x 3
Data Reviewed
-
Date of Service: August 09, 2025
Medical Decision Making: Reviewed Test Results (Cath)
EKG: Tracing Personally Visualized and interpreted (Sinus rhythm)
Echo: Report Reviewed by me
Labs: Labs Reviewed by me
[2025-08-10 08:13] LABS: ACT-LR - POC 335 Seconds (116-155)
[2025-08-10 08:13] LABS: ACT-LR - POC 242 Seconds (116-155)
[2025-08-10 08:13] LABS: ACT-LR - POC 268 Seconds (116-155)
[2025-08-10 08:13] LABS: ACT-LR - POC 170 Seconds (116-155)
--- NOTE | 2025-08-10 14:42 | PTCARENOTE ---
08/10/2025 DIABETES EDUCATION CONSULT
I contacted [facility] via phone, received consult over the weekend when DM office is closed. He was recently inpatient with PTCW w/ LAD and stents. His HbA1c during admission was 9.3%. He states in the past he controlled his BS with diet and
exercise, was at 7% and was taken off all medications. He does not remember the name of his provider at that time.
He received a glucometer, test strips, and lancets and has been checking his BS daily; denies needing support or education in checking his BS. This morning his BS was 250 and he took 1 500 mg Metformin. I educated him that this is not meant for
mealtime glucose control, it decreases release of glucose from the liver. We reviewed the fasting BS goals of 80-130 and 2 hour post prandial goal of 80-140 mg/dL. States he was d/c with Metformin even after discussing with provider his past
symptoms of severe diarrhea. He has taken Metformin since d/c but does not want to continue. States he has a PCP follow up this week at [facility]. I provided education that Metformin ER is often prescribed if severe GI
issues with Metformin.
At his request, provided names of local endocrinologists and emiled information on DSME classes offered at [facility]. He will contact us with any questions or interest.
He states he also has a cardiology follow up today at 4pm, states there is lump the size of a dime at insertion site. Denies s/s of infection.
== END 2025-08-09 13:44 | disposition home or self-care (01) | DRG 322 ==
LOC: IVU 00:36
PROVIDERS: Internal Medicine Interventional Cardiology; Nurse Practitioner Adult Health; ADMITTING PHYSICIAN Hospitalist; ATTENDING PHYSICIAN Hospitalist; CONSULT PHYSICIAN Student in an Organized Health Care Education/Training Program; EMERGENCY PHYSICIAN Emergency Medicine
PROC: 027034Z Dilation of Coronary Artery, One Artery with Drug-eluting Intraluminal Device, Percutaneous Approach (ICD-10-PCS; 2025-08-07)
PROC: B24BZZ3 Ultrasonography of Heart with Aorta, Intravascular (ICD-10-PCS; 2025-08-07)
PROC: B2111ZZ Fluoroscopy of Multiple Coronary Arteries using Low Osmolar Contrast (ICD-10-PCS; 2025-08-07)
PROC: 4A023N7 Measurement of Cardiac Sampling and Pressure, Left Heart, Percutaneous Approach (ICD-10-PCS; 2025-08-07)
PROC: 3E02340 Introduction of Influenza Vaccine into Muscle, Percutaneous Approach (ICD-10-PCS; 2025-08-09)
DX: I21.4 Non-ST elevation (NSTEMI) myocardial infarction (principal); E87.1 Hypo-osmolality and hyponatremia; F17.200 Nicotine dependence, unspecified, uncomplicated; I25.10 Atherosclerotic heart disease of native coronary artery without angina pectoris; Z82.49 Family history of ischemic heart disease and other diseases of the circulatory system; E11.9 Type 2 diabetes mellitus without complications; I25.5 Ischemic cardiomyopathy; Z79.82 Long term (current) use of aspirin; I10 Essential (primary) hypertension; Z23 Encounter for immunization
CPT/HCPCS: 71046; 80048; 80053; 80061; 82077; 82962; 83036; 83690; 84484; 85025; 85027; 85347; 85730; 90656; 92978; 93005; 93458; 93799; 96365; 96366; 96367; 96375; 99152; 99153; 99291; C1725; C1753; C1769; C1874; C1894; C9600; G0008; Q9967